=== PATIENT | female | born 1990 | race Caucasian/White ===

== ENCOUNTER 2018-12-31 15:00 | Inpatient (IN) | payer OTHER ==
[2018-12-31 15:40] VITALS: BMI 25.9
--- NOTE | 2018-12-31 16:13 | OBHP ---
Datetime: 12/31/2018 16:10 IP Adm Impression: Term, intrauterine ; Ruptured Membranes IP Admit Plan: Admit to unit; Initiate labor protocol Admit Comment, IP Provider: at 39+weks vame with c/o srom at 2 pm and irr ctxs started ysterday , no vb,+fm obhx pimi pmh de med pnv all nkda psh de soch de ssse =pooling+ntrazine a/p at 39+ weeks prom/labor admit t l_d npo/ivf labs pitocin cont antony and efm anticipate Pelvic Type - PN: Adequate Extremities - PN: Normal Abdomen - PN: Normal Back - PN: Normal Breast - PN: Normal Lungs - PN: Normal Heart - PN: Normal Thyroid - PN: Normal Neurologic - PN: Normal HEENT - PN: Normal General - PN: Normal Amniotic Fluid Color, Provider: Clear Membranes, Provider: Ruptured Contraction Comments Provider: q1-4 IP Hx Assessment: The History has been Reviewed and is Current EGA AdmitDate IP: 39.5 Vital Signs Provider: Reviewed; Within Normal Limits IP Chief Complaint: Uterine contractions; Suspected ruptured membranes Dilatation, Provider: 2 Effacement, Provider: 60 Station, Provider: -2 Genitourinary Exam: Normal DTRs - PN: Normal
[2018-12-31] MEDS ORDERED: Oxytocin 30 UNIT 30 UNITS/500 ML BAG IV ONE ×2 (16:15→16:43)
[2018-12-31] MEDS: Lactated Ringer's 1,000 ML IV SCH (16:35)
[2018-12-31 16:59] LABS: SQUAMOUS EPITHIAL 1 /hpf (0-5); URINE BILIRUBIN NEGATIVE (NEGATIVE); URINE BLOOD NEGATIVE (NEGATIVE); URINE CLARITY Hazy (Clear); URINE COLOR Yellow (YELLOW); URINE GLUCOSE (UA) NORMAL (Normal); URINE LEUKOCYTE ESTERASE NEG Leu/uL (Negative); URINE PROTEIN NEGATIVE (NEGATIVE); URINE UROBILINOGEN NORMAL mg/dL (0.2-1.0)
[2018-12-31 17:06] LABS: ALB/GLOB RATIO 1.3 (1.0-2.1); ALBUMIN 3.8 g/dL (3.5-5.0); ALT/SGPT 20 U/L (9-52); AST/SGOT 27 U/L (14-36); BLOOD UREA NITROGEN 7 mg/dL (7-17); CALCIUM 9.3 mg/dl (8.6-10.4); GFR NON-AFRICAN AMERICAN > 60
[2018-12-31 17:07] LABS: BASO % 0.4 % (0.0-2.0); EOS # 0.2 K/uL (0.0-0.7); EOS % 1.8 % (0.0-4.0); HEMOGLOBIN 12.1 g/dL (11.0-16.0); LYMPH # 1.4 K/uL (1.0-4.3); LYMPH % 12.4 % (20.0-40.0); MEAN CELL VOLUME 89.7 fL (81.0-99.0); MEAN CORPUSCULAR HEMOGLOBIN 29.6 pg (27.0-31.0); MEAN PLATELET VOLUME 8.3 fL (7.2-11.7); MONO # 0.9 K/uL (0.0-0.8); MONO % 7.4 % (0.0-10.0); RBC 4.09 Mil/uL (3.80-5.20); RED CELL DISTRIBUTION WIDTH 13.7 % (11.5-14.5); WHITE BLOOD COUNT 11.6 K/uL (4.8-10.8)
[2018-12-31] MEDS ORDERED: Fentanyl/Bupivacaine HCl 250 ML EPI ONE (18:24)
[2019-01-01] MEDS: Lactated Ringer's 1,000 ML IV SCH
[2019-01-01] MEDS ORDERED: Oxytocin 20 units in LR 2,000 ML IV ONE (08:34)
[2019-01-01] MEDS ORDERED: Sodium Citrate/Citric Acid 15 ml Sol ONE (08:34)
[2019-01-01] MEDS ORDERED: cefOXitin IV 2 gm in Dextrose 2 GM/50 ML BAG IVPB ONE ×2 (08:35→11:00)
[2019-01-01] MEDS ORDERED: Lidocaine 2% MPF (5 ml) Inj ONE (10:05)
[2019-01-01] MEDS ORDERED: Morphine 1 mg/ml preservative-free Inj(Duramorph) ONE (10:06)
[2019-01-01] MEDS ORDERED: Sodium Citrate/Citric Acid 15 ml Sol PO ONE (10:30)
[2019-01-01] MEDS ORDERED: cefOXitin IV 2 gm in Saline 2 GM in Sodium Chloride 0.9% 50 ML IV ONE (10:30)
[2019-01-01] MEDS ORDERED: Oxytocin 10 Units/ml Inj IV ONE (10:30)
[2019-01-01] MEDS ORDERED: Phenylephrine 10 mg/ml Inj ONE (10:50)
[2019-01-01] MEDS ORDERED: Oxycodone/Acetaminophen 5/325 mg Tab PO PRN (11:00)
[2019-01-01] MEDS ORDERED: Oxytocin 30 UNIT 30 UNITS/500 ML BAG IV ONE (11:00)
--- NOTE | 2019-01-01 11:16 | OBPN ---
Datetime: 01/01/2019 11:08 IP Progress Impression: Arrest of dilatation/descent IP Progress Plan: Deliver- Section IP Progress Note Comment: Delayd etry: Pt admitted with PROM 2cm, tarted on pitoicn s/p epidral pt started tohave intemittent decelerations givne ressuctions, oxyge, pitocin dc pitocn was rstsrted after some time with decerlation, and dc adn restarted pt reexmained 2- 3cm pt counseld on Cat II with pitoicn and arrest at 2-3cm pt coulse don contiue iol vs ptlcs pt consented ofr cxs r/ba/i dw piaetn pt transfreed to or Datetime: 12/31/2018 16:10 Membranes, Provider: Ruptured Amniotic Fluid Color, Provider: Clear Contraction Comments Provider: q1-4 Vital Signs Provider: Reviewed; Within Normal Limits Dilatation, Provider: 2 Effacement, Provider: 60 Station, Provider: -2
--- NOTE | 2019-01-01 11:20 | OBDS ---
DELIVERY PERSONNEL Delivery Doctor: Jennifer Newton MD Scrub Nurse: Micaela Joshi Chief Revenue Officer: SHELLY Valle Anesthesiologist: Dr Up MATERNAL INFORMATION Delivery Anesthesia: Epidural Medications in Delivery: pitocin Estimated Blood Loss (ml): 800 Placenta Cultured: No Maternal Complications: None Provider Comments: ptlcs nroal appearing ueurs tube sna dovaries b/l ebl 800l live female infnat cord x 3 tight pediatirican prsent for dleiveyr LABOR SUMMARY EDC: 01/02/2019 00:00 No. Babies in Womb: 0 Attempted: No Labor Anesthesia: Epidural LABOR INFORMATION Onset of Labor: 12/31/2018 14:00 Oxytocin: Augmentation Group B Beta Strep: Negative Steroids Given: None Reason Steroids Not Administered: Not Applicable MEMBRANES Membranes Rupture Method: Spontaneous Rupture of Membranes: 12/31/2018 14:00 Length of Rupture (hrs): 20.43 Amniotic Fluid Color: Clear Amniotic Fluid Amount: Moderate STAGES OF LABOR Stage 3 hrs: 0 Stage 3 min: 2 Total Time in Labor hrs: 20 Total Time in Labor min: 28 CSECTION DELIVERY Primary Indication: Other Other Primary Indication: Arrest dilatation CSection Urgency: Elective CSection Incidence: Primary Labor: Labor Elective: Elective CSection Incision: Lower Uterine Transverse Sterilization Procedure: [place] BABY A INFORMATION Delivery Date/Time: 01/01/2019 10:26 Method of Delivery: Born in Route : No : N/A Forceps: N/A Vacuum Extraction: N/A Shoulder Dystocia : No SHOULDER DYSTOCIA BABY A Infant Delivery Date/Time: 01/01/2019 10:26 PRESENTATION/POSITION BABY A Presentation: Cephalic Cephalic Presentation: Vertex Vertex Position: Right Occipital Transverse Breech Presentation: N/A PLACENTA INFORMATION BABY A Placenta Delivery Time : 01/01/2019 10:28 Placenta Method of Delivery: Manual Removal Placenta Status: Delivered SCORES BABY A Heart Rate 1 min: >100 bpm Resp Effort 1 min: Good Cry Reflex Irritability 1 min: Cough or Sneeze or Pulls Away Muscle Tone 1 min: Active Motion Color 1 min: Body [place], Extremities Blue Resuscitation Effort 1 min: Tactile Stimulation SCORE 1 MIN: 9 Heart Rate 5 min: >100 bpm Resp Effort 5 min: Good Cry Reflex Irritability 5 min: Cough or Sneeze or Pulls Away Muscle Tone 5 min: Active Motion Color 5 min: Body [place], Extremities Blue Resuscitation Effort 5 min: Tactile Stimulation SCORE 5 MIN: 9 INFANT INFORMATION BABY A Gestational Age at Delivery: 39.5 Gestational Status: Term Infant Outcome : Liveborn Infant Condition : Stable Infant Sex: Female IDENTIFICATION/MEDS BABY A ID Band Number: [id number] ID Band Location: Left Leg; Left Arm Sensor Applied: Yes Sensor Number: [id number] Sensor Location : Cord Clamp Vitamin K Given : Not Given Erythromycin Given: Not Given WEIGHT/LENGTH BABY A Infant Birthweight (gms): 3520 Infant Weight (lb): 7 Infant Weight (oz): 12 Length Inches: 20.00 Length cms: 50.8 CORD INFORMATION BABY A No. Cord Vessels: 3 Nuchal Cord : x3 tight Infant Cord pH Baby Venous: 7.34 Cord Blood Taken: Yes Infant Suction: Mouth; Nose ASSESSMENT BABY A Complications: None Physical Findings at Delivery: Within Normal Limits Infant Respirations: Appears Normal Infant Care By: Dr Ferguson Transferred To: Remains with Mother
[2019-01-01] MEDS: Simethicone 80 mg Chewtab PO SCH ×2 (18:08→21:37)
[2019-01-01] MEDS: Oxycodone/Acetaminophen 5/325 mg Tab PO PRN (21:32)
--- NOTE | 2019-01-02 00:26 | OP ---
PROCEDURE DATE: 01/01/2019 PREOPERATIVE DIAGNOSIS: Arrest of dilation. POSTOPERATIVE DIAGNOSIS: Arrest of dilation. PROCEDURE PERFORMED: Primary low-transverse section. SURGEON: Jennifer Newton MD TESTER SOUND: Aguilar Snyder MD ANESTHESIA: Epidural spinal. OPERATIVE FINDINGS: Live female . Tight nuchal cord x3. Normal-appearing uterus, tubes, and ovaries. Apgars 9 and 9. Marketing Pr Intern was present for delivery. Dr. Aguilar Snyder was the surgical services tech, present for the entire case, especially in gaining entry, retraction, exposure, holding the bladder blade, helping in delivery of the baby, closing all layers. ESTIMATED BLOOD LOSS: 800 mL. BLOOD PRODUCTS: None. COMPLICATIONS: None. PATHOLOGY: Placenta. DESCRIPTION OF THE PROCEDURE: The patient was taken to the operating room where she was given anesthesia. Once found to be adequate, she was placed on the operating table in dorsal supine position with legs supported using stirrups. The patient was then prepped and draped in the usual sterile fashion. A time-out confirmed correct patient and correct procedure. A Pfannenstiel skin incision was made with a scalpel and carried down to the underlying fascia. The fascia was incised in the midline. The incision was extended laterally with the Bovie. The inferior aspect of the fascial incision was grasped with Allis and Valarie clamps, and the underlying rectus muscles were dissected off bluntly. The rectus muscles were then in the midline. The peritoneum was identified and entered into clear space. The incision was extended laterally and superiorly until there was good visualization of the bladder. The lower end of the Joss was then reinserted. Lower uterine segment was incised in a transverse fashion. The uterine incision was extended laterally with bandage scissors. The surgeon's hand entered the uterine cavity. The 's head was delivered atraumatically. There was tight nuchal x3 that was reduced, followed by delivery of shoulders, followed by delivery of body, both oral and nasal passages of the baby were bulb suctioned. The umbilical cord was clamped and cut. Baby was handed off to the awaiting planning feeder. Cord blood and cord gases were collected and sent x2. The placenta was then delivered manually. The uterus was exteriorized and cleared of all clots and debris. The uterine incision was closed with 0 Vicryl in a running continuous locked fashion. A second layer of the same suture was used to close the uterus in running imbricating manner. The uterus was then returned to the abdomen. Pericolic gutters were cleared of all clots and debris. The peritoneum was reapproximated and closed with a 2-0 chromic in a running continuous fashion, and the rectus was reapproximated with a 2-0 chromic in an interrupted manner. The fascia was reapproximated with 0 Vicryl in a running continuous fashion. The subcutaneous space was closed with a 2-0 plain in an interrupted manner. The skin was reapproximated with 4-0 Monocryl in a running subcuticular fashion. At the end of the procedure, all needle, sponge and instrument counts were noted to be correct x2. The patient tolerated the procedure well and was transferred to the recovery room in stable condition. Jennifer Newton MD
[2019-01-02 07:43] LABS: MEAN CORPUSCULAR HEMOGLOBIN 30.4 pg (27.0-31.0); MEAN PLATELET VOLUME 8.2 fL (7.2-11.7); RBC 3.97 Mil/uL (3.80-5.20)
[2019-01-02] MEDS: Oxycodone/Acetaminophen 5/325 mg Tab PO PRN ×2 (07:46→18:07)
[2019-01-02 08:00] LABS: MEAN CELL VOLUME 91.9 fL (81.0-99.0); WHITE BLOOD COUNT 18.4 K/uL (4.8-10.8)
[2019-01-02] MEDS: Simethicone 80 mg Chewtab PO SCH ×5 (09:12→21:19)
[2019-01-02] MEDS: Prenatal Multivit/Folic Acid/Iron Tab PO SCH (10:00)
--- NOTE | 2019-01-02 10:51 | OBPPN ---
Datetime: 01/02/2019 10:48 PP Pain Prov: Within normal limits PP Nausea Prov: Denies PP Flatus Prov: Yes PP BM Prov: No PP Breasts Prov: Normal PP Heart Prov: Normal PP Lungs Prov: Normal PP Abdomen/Uterus Prov: Normal PP Lochia Prov: Normal PP Vulva/Perineum Prov: Normal PP CVA Tenderness Prov: Normal PP Extremities Prov: Normal PP C/S Incision Prov: Normal PP Progress Prov: Normal PP Comments Phys Exam Prov: GEN NAD AAO x 3 RESP: CTAB?l CVS: RRR< +S1/S2 BREAST: breat feeidgn non engoargel ABD: soft, NT/ND, _BS IUNCISOCN C?D?I FUNDUS: FImr, at [facility], no uteirne tndner minianl lochai non cousl smeling EX:T no calf tendner b/l PP Impression Prov: Normal progression PP Progress Note Prov: pt seen adn examiend pain contolled with meds. passign gas, no fever, chils, n/v +breastfeeidng VSS PE see aove a/p s/p PTLCS POD #1 with leukocyt pain magnet repat am cbc encoaruge breats feeding and dmabiotn abdomanil bidner incsentive sprionmer Vital Signs Provider PP: Reviewed; Within Normal Limits
[2019-01-02] MEDS ORDERED: Bisacodyl 5mg EC Tab PO ONE ×2 (11:01→14:45)
[2019-01-02] MEDS ORDERED: Diphenhydramine 1% Cream (1 oz) TOP PRN (15:45)
[2019-01-03] MEDS: Oxycodone/Acetaminophen 5/325 mg Tab PO PRN ×2 (02:31→06:48)
[2019-01-03 03:03] LABS: SQUAMOUS EPITHIAL 2 /hpf (0-5); URINE BILIRUBIN NEGATIVE (NEGATIVE); URINE BLOOD 1+ (NEGATIVE); URINE CLARITY Clear (Clear); URINE COLOR Straw (YELLOW); URINE GLUCOSE (UA) NORMAL (Normal); URINE LEUKOCYTE ESTERASE NEG Leu/uL (Negative); URINE PROTEIN NEGATIVE (NEGATIVE); URINE UROBILINOGEN NORMAL mg/dL (0.2-1.0)
[2019-01-03 09:29] LABS: BASO % 0.2 % (0.0-2.0); EOS # 0.4 K/uL (0.0-0.7); HEMOGLOBIN 10.4 g/dL (11.0-16.0); LYMPH # 1.8 K/uL (1.0-4.3); LYMPH % 12.7 % (20.0-40.0); MEAN CELL VOLUME 92.1 fL (81.0-99.0); MEAN CORPUSCULAR HEMOGLOBIN 30.2 pg (27.0-31.0); MEAN CORPUSCULAR HGB CONC 32.8 g/dL (33.0-37.0); MEAN PLATELET VOLUME 8.3 fL (7.2-11.7); MONO # 1.1 K/uL (0.0-0.8); MONO % 7.7 % (0.0-10.0); NEUT # 10.9 K/uL (1.8-7.0); NEUT % 76.4 % (50.0-75.0); RBC 3.44 Mil/uL (3.80-5.20); WHITE BLOOD COUNT 14.3 K/uL (4.8-10.8)
[2019-01-03] MEDS: Simethicone 80 mg Chewtab PO SCH ×2 (09:38→14:25)
[2019-01-03] MEDS: Prenatal Multivit/Folic Acid/Iron Tab PO SCH (09:38)
[2019-01-03] MEDS ORDERED: Influenza Vaccine 60 mcg/0.5 mL SYR (4YR UP) IM ONE (10:02)
[2019-01-03 10:29] VITALS: BP 112/68; PULSE 87; RESP 18; TEMP 97.9; O2SAT 97
[2019-01-03] MEDS: Bacitracin Ointment 30 GM TUBE TOP SCH ×2 (11:15→14:27)
--- NOTE | 2019-01-03 16:47 | OBPPN ---
Datetime: 01/03/2019 16:43 PP Pain Prov: Within normal limits PP Nausea Prov: Denies PP Flatus Prov: Yes PP Breasts Prov: Normal PP Heart Prov: Normal PP Lungs Prov: Normal PP Abdomen/Uterus Prov: Normal PP Lochia Prov: Normal PP Vulva/Perineum Prov: Normal PP CVA Tenderness Prov: Normal PP Extremities Prov: Normal PP Impression Prov: Normal progression PP Plan Prov: Discharge PP Progress Note Prov: pt doign well vss pe above a/p s/p PTC SPOD #2 doing well wbc improved [place] dc home rto office 1 week Vital Signs Provider PP: Reviewed; Within Normal Limits
--- NOTE | 2019-01-03 17:50 | OBDCSUM ---
Datetime: 01/03/2019 10:43 Discharged to, Provider: Home Follow up at, Provider: judie Carrillo Instr Activity: Normal activity Disch Instr Diet: Regular Discharge Instructions, Provider: Routine instructions given Discharge Diagnosis, Provider: Term Delivered Discharge Time: 01/03/2019 16:10 Follow up in weeks, Provider: 01-12-19 Disch Referrals: None Contraception discussed, Prov: Yes Disch Activity Restrictions: No lifting; Minimize stair-climbing; No sexual activity; Nothing in vag marla - [place], tampons, douche Contraception after Delivery: Not Planning to Use
== END 2019-01-03 14:10 | disposition home or self-care (01) | DRG 788 ==
LOC: C.EROB 15:00 → C.4D 16:13 → C.4M 01-01 15:20
PROVIDERS: ADMIT Obstetrics & Gynecology; ATTEND Obstetrics & Gynecology
PROC: 10D00Z1 Extraction of Products of Conception, Low, Open Approach (ICD-10-PCS; principal; 2019-01-01)
DX: O69.1XX0 Labor and delivery complicated by cord around neck, with compression, not applicable or unspecified (principal); O62.0 Primary inadequate contractions; Z3A.39 39 weeks gestation of pregnancy; Z37.0 Single live birth